=== PATIENT | male | born 1995 | race African-American/Black ===

== ENCOUNTER 2017-04-03 01:49 | Emergency (ER) | payer SELFPAY ==
[2017-04-03 01:58] VITALS: BP 127/73; BMI 24.7
[2017-04-03 02:48] LABS: BILIRUBIN,URINE NEGATIVE (NEGATIVE); BLOOD/HEMOGLOBIN,URINE NEGATIVE (NEGATIVE); GLUCOSE, URINE NEGATIVE (NEGATIVE); KETONES,URINE NEGATIVE (NEGATIVE); LEUKOCYTE ESTERASE ,URINE 1+ (NEGATIVE); NITRITES,URINE NEGATIVE (NEGATIVE); PROTEIN,URINE 2+ (NEGATIVE); UROBILINOGEN,URINE 2+ (NORMAL)
--- NOTE | 2017-04-03 02:52 | DR.GENAD ---
HPI - PCP Primary Care Physician: MASON - HPI Comment HPI Comment: Pt c/o 4 day h/o painful left testicle w/o penile discharge. He uses condoms religiously every time he gillette sex. His last sexual activities occured ~ 2 weeks ago. He recalls straining himself ~5 days ago when Lifting boxes at work. - Complaint/Symptoms Chief Complaint Doctors Comments: "My left ball hurts" Chief Complaint:: LEFT TESTICLE PAIN,X 3 DAYS MORE SO WHEN LIFTING HEAVY OBJECT Self Treatment fo Chief Complaint: NONE - Nurses notes reviewed Nurses Notes Review: Yes - Source History Provided: Patient - Mode of Arrival Mode of Arrival: Ambulatory - Timing Onset of Chief Complaint: 03/31/17 Came on: Gradually - Duration Duration: Intermittent How lon Duration: Days - Severity Severity: Moderate PMH - PMH Past Medical History: No Past Surgical History: No - Family History History of Family Medical Conditions: No Family Medical History: Diabetes Mellitus Family Medical History Comment: FATHER - Social History Does patient currently use any type of tobacco product: Yes Have you used tobacco products in the last 12 months: Yes Type of Tobacco Use: Cigarettes Does any household member use tobacco: No Alcohol Use: None Do you use any recreational Drugs:: No Lives With: Family Lives Where: Home - infectious screening In the last 2 months have you had wt loss of >10#?: NO Have you had fever, night sweats or hemotysis?: No Have you traveled outside the country in the last 6 months?: No Isolation: Standard ROS - Review of Systems Constitutional: No Symptoms Reported Eyes: No Symptoms Reported Respiratoy: No Symptoms Reported Cardiovascular: No Symptoms Reported Gastrointestinal/Abdominal: No Symptoms Reported Genitourinary: Other (Left testicular pain after lifting heavy boxes at work ) Neurological: No Symptoms Reported Musculoskeletal: No Symptoms Reported Integumentary: No Symptoms Reported Hematologic/Lymphatic: No Symptoms Reported Psychiatric: No Symptoms Reported All Other Systems: Reviewed and Negative PE - Vital Signs Vitals: Temperature 98.2 F Pulse Rate 64 Respiratory Rate 16 Blood Pressure 127/73 O2 Sat by Pulse Oximetry 100 - General Limitations: No Limitations General Appearance: Alert, In No Apparent Distress - Neck Neck Exam: Normal Inspection, Full ROM, Trachea Midline - Chest Chest Inspection: Normal Inspection, Symmetric Chest Wall Rise - Respiratory Respiratory Exam: Normal Lung Sounds Bilat Respiratory Exam: Bilateral Clear to Auscultation - Cardiovascular Cardiovascular Exam: Regular Rate, Normal Rhythm, Normal Heart Sounds - Other Exam Other Exam: Normal circumcised male, no discharge , no significant swelling is noted , No hernia detected.testes descended X 2. MDM - Differential Diagnosis Differential Diagnosis: torsion, epididymitis, hernia, spermatoceole ROR - Labs Reviewed Laboratory Results Reviewed?: Yes - XRAY XRAY Interpreted by: Radiologist (normal testicular US) - Diagnosis Discharge Problem: Epididymitis, Scrotal pain - Discharge Plan Disposition: HOME, SELF-CARE Condition: Stable - Follow ups/Referrals Follow ups/Referrals: [facility],None [Primary Care Provider] - 3 days - Instructions Instructions: Epididymitis, Orchitis
--- NOTE | 2017-04-03 02:56 | US ---
EXAM: Scrotal Ultrasound INDICATION: Left testicular pain COMPARISION: No priors for comparison TECHNIQUE: Duplex scan of the testicles and epididymis was performed using B-mode/grayscale imaging and Doppler spectral analysis and color flow. FINDINGS: Both testicles are normal in size, shape, and echogenicity. Color flow is demonstrated bilaterally. T he epididymis is normal bilaterally. No intra testicular or extratesticular mass. IMPRESSION: Normal testicular ultrasound Reported By:
[2017-04-03 02:57] LABS: APPEARANCE,URINE CLEAR (CLEAR); BACTERIA,URINE TRACE /HPF (NEGATIVE); COLOR,URINE YELLOW (YELLOW); MUCUS,URINE FEW /HPF (NEGATIVE); RBC,URINE 0-3 /HPF (NEGATIVE); SQUAMOUS EPITHELIAL CELL,UR FEW /HPF (NEGATIVE)
[2017-04-03] MEDS ORDERED: TORADOL 60 MG VIAL IM ONE (03:04)
[2017-04-03] MEDS ORDERED: TORADOL 60 MG VIAL ONE (03:08)
[2017-04-03 04:28] LABS: CHLAMYDIA TRACH URINE DETECTED (NOT DETECT)
== END 2017-04-03 03:25 | disposition home or self-care (01) ==
LOC: ER 01:49
DX: N45.1 Epididymitis (principal); N50.82 Scrotal pain
CPT/HCPCS: 76870; 81001; 87086; 87491; 87591; 96372; 99283; J1885